=== PATIENT | female | born 1990 | race Caucasian/White ===

== ENCOUNTER 2021-07-18 16:34 | Outpatient (REF) | payer OTHER, SELFPAY ==
[2021-07-18 17:18] LABS: Influenza A PCR NEGATIVE (Negative); Influenza B PCR NEGATIVE (Negative); Resp Syncy Virus RNA Qual PCR NEGATIVE (Negative); SARS COV2 PCR INHOUSE NEGATIVE (Negative)
== END 2021-07-18 16:35 | disposition home or self-care (01) ==
LOC: HO.LNP 16:34
PROVIDERS: Visit Provider Internal Medicine
DX: Z20.822 Contact with and (suspected) exposure to COVID-19 (principal); R43.9 Unspecified disturbances of smell and taste
CPT/HCPCS: 0241U

== ENCOUNTER 2023-02-14 20:21 | Emergency (ER) | payer OTHER, SELFPAY ==
[2023-02-14 20:24] VITALS: BP 134/95; PULSE 72; RESP 20; TEMP 36.8; O2SAT 99; BMI 34.2
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
[2023-02-14 22:51] VITALS: BP 132/85; PULSE 62; RESP 18; TEMP 37.1; O2SAT 97
--- NOTE | 2023-02-14 23:03 | PC.NURSE ---
pa notified pt right hand swelling and scant blood coming from cat bite and pt c/o extreme pain. elevated w/various pillows, ice around forearm where other cat bites/scratches are. aox4. cooperative. 05/18 pain.
== END 2023-02-15 01:11 | disposition home or self-care (01) ==
PROVIDERS: Emergency Provider Emergency Medicine Emergency Medical Services
DX: S41.151A Open bite of right upper arm, initial encounter (principal); S40.811A Abrasion of right upper arm, initial encounter; M79.601 Pain in right arm; M79.641 Pain in right hand; W55.01XA Bitten by cat, initial encounter; Y93.9 Activity, unspecified; Y92.9 Unspecified place or not applicable; Y99.9 Unspecified external cause status; Z79.899 Other long term (current) drug therapy; Z23 Encounter for immunization
CPT/HCPCS: 73110; 73130; 90471; 90715; 99284

== ENCOUNTER 2023-09-10 08:13 | Outpatient (AMB) | payer OTHER, SELFPAY ==
--- NOTE | 2023-09-10 08:28 | MHC.OFFWIV ---
Intake Vital Signs 09/10/23 08:37 Height 5 ft Weight 197 lb BMI 38.5 BP 116/70 Blood Pressure Location Lt brachial Position Sitting Pulse 97 Pulse Source Pulse Oximeter Temp 97.8 F Temp Source Temporal Artery Scan Pulse Oximetry (%) 98 Oxygen Delivery Method Room Air Intake Visit Reasons: EP Cough, headache, congestion [phone] Intake Note: pt is here today for cough headache congestion started yesterday Patient Tobacco Use Status: Current everyday Tobacco user Allergies amoxicillin Allergy (Verified 09/10/23 08:30) Hives Do you need a note to return to daycare/school/sports/work: Yes HPI HPI Comments History of Present Illness Details 32 y/o female presents to walk in clinic with c/o URI symptoms that started yesterday. BF home sick with Influenza and covid. PFSH Social History Patient Tobacco Use Status: Current everyday Tobacco user Review of Systems Const All systems reviewed & are unremarkable except as noted in HPI and below Physical Exam Vital Signs: Last Vital Signs Temp 97.8 F 09/10/23 08:37 Pulse 97 09/10/23 08:37 BP 116/70 09/10/23 08:37 Pulse Ox 98 09/10/23 08:37 Oxygen Delivery Method Room Air 09/10/23 08:37 BMI result Body Mass Index 38.5 Const General: no acute distress; No comfortable HEENT Head: Yes normocephalic Ears: external ears normal and TM's normal bilaterally General nose exam: Abnormal mucous membranes and turbinates present boggy and erythematous and Nasal discharge present Face and sinus: Yes sinuses nontender Mouth: moist mucous membranes Throat: Yes postnasal drainage Resp Effort & Inspection: normal respiratory effort Auscultation: clear to auscultation bilaterally Cardio Rate: regular rate Rhythm: regular rhythm Assessment & Plan Assessment & Plan (1) Upper respiratory tract infection: Code(s): J06.9 - Acute upper respiratory infection, unspecified Qualifiers: URI type: acute nasopharyngitis (common cold) Qualified Code(s): J00 - Acute nasopharyngitis [common cold] Plan: - Will Tx with Tamiflu - Acetaminophen for pain and fever relief - Rest and hydrate - OTC cold remedies. Plan - Will Tx with Tamiflu - Acetaminophen for pain and fever relief - Rest and hydrate - OTC cold remedies. Orders: Orders SARS-CoV2/FLU/RSV Today J06.9 - Acute upper respiratory infection, unspecified Medications: New oseltamivir (Tamiflu) 75 mg PO BID 5 days 10 caps 0RF J06.9 - Acute upper respiratory infection, unspecified acetaminophen 1,000 mg (2 x 500 mg) PO Q6H PRN 30 caps 0RF fever J06.9 - Acute upper respiratory infection, unspecified Coding Level of Care Code Est Pt Level 3 (48146) Diagnoses Acute nasopharyngitis J00 URI type: acute nasopharyngitis (common cold) Time Spent (min) 15
[2023-09-10 08:37] VITALS: BP 116/70; PULSE 97; TEMP 36.6; O2SAT 98; BMI 38.5
== END 2023-09-10 09:12 | disposition home or self-care (01) ==
PROVIDERS: Visit Provider Nurse Practitioner Family
DX: J00 Acute nasopharyngitis [common cold] (principal)
CPT/HCPCS: 99213

== ENCOUNTER 2023-09-10 15:14 | Outpatient (REF) | payer OTHER, SELFPAY ==
[2023-09-10 16:27] LABS: Influenza A PCR POSITIVE (Negative); Influenza B PCR NEGATIVE (Negative); Resp Syncy Virus RNA Qual PCR NEGATIVE (Negative); SARS COV2 PCR INHOUSE NEGATIVE (Negative)
== END 2023-09-10 15:15 | disposition home or self-care (01) ==
LOC: HO.LNP 15:14
PROVIDERS: Visit Provider Nurse Practitioner Family
DX: Z11.52 Encounter for screening for COVID-19 (principal); J06.9 Acute upper respiratory infection, unspecified
CPT/HCPCS: 0241U

== ENCOUNTER 2024-05-22 11:00 | Outpatient (AMB) | payer OTHER, SELFPAY ==
--- NOTE | 2024-05-22 11:05 | AM.OFFWIN_ITS ---
Intake Vital Signs 05/22/24 11:06 Height 5 ft Weight 191 lb BMI 37.3 BP 122/80 Blood Pressure Location Rt brachial Position Sitting Pulse 83 Pulse Source Pulse Oximeter Temp 98.2 F Temp Source Oral Pulse Oximetry (%) 98 Oxygen Delivery Method Room Air Intake Visit Reasons: EP-rt ear pain & discharging fluid Intake Note: Patient here for fluid feeling in right ear, blocked, ear pain and now starting to get a headache. Patient Tobacco Use Status: Current everyday Tobacco user Allergies amoxicillin Allergy (Verified 05/22/24 11:07) Hives Do you need a note to return to daycare/school/sports/work: No HPI HPI Comments History of Present Illness Details Patient is a 33-year-old female complaining of right ear pain. She tells me she had an a minor cold last week and has a history of ear infections and eustachian tube dysfunction and typically will get an ear infection when she sick. She states she has right ear pain, feeling like there is fluid in right ear, feeling like it is blocked, reduction in hearingand now starting to get a headache for the last few days. Tells me she had tubes as a child. She denies fevers. [facility] Social History Patient Tobacco Use Status: Current everyday Tobacco user Review of Systems Const All systems reviewed & are unremarkable except as noted in HPI and below Physical Exam Vital Signs: Last Vital Signs Temp 98.2 F 05/22/24 11:06 Pulse 83 05/22/24 11:06 BP 122/80 05/22/24 11:06 Pulse Ox 98 05/22/24 11:06 Oxygen Delivery Method Room Air 05/22/24 11:06 BMI result Body Mass Index 37.3 Const General: cooperative, healthy appearing, comfortable and no acute distress Orientation/consciousness: patient oriented x3 HEENT Head: Yes normal to inspection, Yes No palpable skull fracture present and Yes normocephalic Ears: hearing grossly normal bilaterally, external ears normal, EAC's normal, mastoids normal (no TTP) bilaterally and TM abnormal (bilateral) wth effusion, erythematous and with loss of landmarks General nose exam: Normal external nose present Face and sinus: Yes normal facial exam Mouth: Normal oral and palatal mucosa present Teeth and gingiva: dentition normal Throat: Yes posterior oropharynx normal Eyes General: appearance normal, both eyes and all related structures Neck Neck: Yes normal visual inspection, Yes full ROM, Yes no lymphadenopathy, Yes no meningeal signs, Yes trachea midline and Yes supple Resp Effort & Inspection: normal respiratory effort and able to speak in complete sentences Skin General skin exam: no rashes or lesions noted Neuro General: patient oriented x3 and no meningeal signs Assessment & Plan Assessment & Plan (1) Otitis media: Code(s): H66.90 - Otitis media, unspecified, unspecified ear Qualifiers: Otitis media type: suppurative Chronicity: acute Laterality: bilateral Recurrence: non-recurrent Spontaneous tympanic membrane rupture: without spontaneous rupture Qualified Code(s): H66.003 - Acute suppurative otitis media without spontaneous rupture of ear drum, bilateral Plan: With patients allergies, had to RX Doxy, reviewed not going in the sun while taking this medication and taking the medication with food. Plan see above Medications: New doxycycline hyclate 100 mg PO BID 14 tabs 0RF Coding Level of Care Code New Pt Level 3 (35451) Diagnoses Non-recurrent acute suppurative otitis media of both ears without spontaneous rupture of tympanic membranes H66.003 Otitis media type: suppurative Chronicity: acute Laterality: bilateral Recurrence: non-recurrent Spontaneous tympanic membrane rupture: without spontaneous rupture
[2024-05-22 11:06] VITALS: BP 122/80; PULSE 83; TEMP 36.8; O2SAT 98; BMI 37.3
== END 2024-05-22 11:35 | disposition home or self-care (01) ==
PROVIDERS: Visit Provider Physician Assistant
DX: H66.003 Acute suppurative otitis media without spontaneous rupture of ear drum, bilateral (principal)

== ENCOUNTER → 2024-05-22 11:00 | Outpatient (BNVA) | payer OTHER, SELFPAY | PROVIDERS: Visit Provider Physician Assistant | DX: H66.003 Acute suppurative otitis media without spontaneous rupture of ear drum, bilateral (principal) | CPT/HCPCS: 99202 ==

== ENCOUNTER 2024-07-12 11:59 | Outpatient (AMB) | payer OTHER, SELFPAY ==
[2024-07-12 12:33] VITALS: BP 128/82; PULSE 88; O2SAT 99; BMI 37.8
--- NOTE | 2024-07-12 12:33 | AM.OFFWIN_ITS ---
Intake Vital Signs 3 07/12/24 12:33 Height 5 ft Weight 193 lb 8 oz BMI 37.8 BP 128/82 Blood Pressure Location Rt brachial Position Sitting Pulse 88 Pulse Source Pulse Oximeter Pulse Oximetry (%) 99 Oxygen Delivery Method Room Air Intake Visit Reasons: EP hand bite, and RT leg bite by her cat Patient Tobacco Use Status: Current everyday Tobacco user Allergies amoxicillin Allergy (Verified 07/12/24 12:35) Hives Medication List - Last Reconciled 07/12/24 by Asha Magana MD sertraline 50 mg PO DAILY Do you need a note to return to daycare/school/sports/work: Yes HPI EP hand bite, and RT leg bite by her cat 2 HPI0 Details Chief Complaint Bite and scratch wounds from a cat. History of Present Illness The patient is a 33-year-old female presenting with an animal bite and scratch wounds. The incident occurred while she was attempting to restrain a highly agitated 20-pound 15-year-old cat, which resulted in injuries to her right hand and right leg. The patient reports being bitten on the palmar aspect of her right hand and sustaining two scratches behind the right knee. These injuries have been described as very painful, particularly due to their location on sensitive areas. The patient disclosed a history of allergy to penicillin, which developed over time, despite initial tolerance. Her immunization history includes a recent tetanus vaccine administered on February 28. The patient confirmed that the cat involved is fully vaccinated. No previous similar incidents were reported, and the patient has had prior experience handling doxycycline. Plan - Administer local wound care, including thorough cleaning of all affected areas. - Prescribe doxycycline for prophylactic treatment, given the cat bite and allergy to penicillin. - Monitor for signs of infection and luke ssess as needed. - Reassure regarding vaccination status of the cat against rabies, given its full vaccination history. - Reinforce education regarding wound ca re and signs for which to seek further medical evaluation, given the complexity of animal-related injuries. [facility] Social History Patient Tobacco Use Status: Current everyday Tobacco user Review of Systems Const All systems reviewed & are unremarkable except as noted in HPI and below Physical Exam Vital Signs: Last Vital Signs Pulse 88 07/12/24 12:33 BP 128/82 07/12/24 12:33 Pulse Ox 99 07/12/24 12:33 Oxygen Delivery Method Room Air 07/12/24 12:33 BMI result Body Mass Index 37.8 Const General: no acute distress Orientation/consciousness: patient oriented x3 Eyes General: appearance normal, both eyes and all related structures Resp Effort & Inspection: normal respiratory effort and able to speak in complete sentences Neuro General: patient oriented x3 Extrem Hand/finger images: 2 1. To bite lydia right hand palmar aspect Upper/lower leg/hip images: 2 1. 2. To scratch lydia behind right knee Psych Mental Status: mental status grossly normal Assessment & Plan Assessment & Plan (1) Cat bite of right hand: Code(s): S61.451A - Open bite of right hand, initial encounter; W55.01XA - Bitten by cat, initial encounter Qualifiers: Encounter type: initial encounter Qualified Code(s): S61.451A - Open bite of right hand, initial encounter; W55.01XA - Bitten by cat, initial encounter (2) Cat scratch of right lower leg: Code(s): S80.811A - Abrasion, right lower leg, initial encounter; W55.03XA - Scratched by cat, initial encounter Qualifiers: Encounter type: initial encounter Qualified Code(s): S80.811A - Abrasion, right lower leg, initial encounter; W55.03XA - Scratched by cat, initial encounter Plan Chief Complaint Bite and scratch wounds from a cat. History of Present Illness The patient is a 33-year-old female presenting with an animal bite and scratch wounds. The incident occurred while she was attempting to restrain a highly agitated 20-pound 15-year-old cat, which resulted in injuries to her right hand and right leg. The patient reports being bitten on the palmar aspect of her right hand and sustaining two scratches behind the right knee. These injuries have been described as very painful, particularly due to their location on sensitive areas. The patient disclosed a history of allergy to penicillin, which developed over time, despite initial tolerance. Her immunization history includes a recent tetanus vaccine administered on February 28. The patient confirmed that the cat involved is fully vaccinated. No previous similar incidents were reported, and the patient has had prior experience handling doxycycline. Plan - Administer local wound care, including thorough cleaning of all affected areas. - Prescribe doxycycline for prophylactic treatment, given the cat bite and allergy to penicillin. - Monitor for signs of infection and reassess as needed. - Reassure regarding vaccination status of the cat against rabies, given its full vaccination history. - Reinforce education regarding wound care and signs for which to seek further medical evaluation, given the complexity of animal-related injuries. Injuries cleaned with saline Note given to be off work today and tomorrow Follow-up with primary care Medications: Changed 2 From doxycycline hyclate 100 mg PO BID 14 tabs 0RF To doxycycline hyclate 100 mg PO BID 20 tabs 0RF 10 days Coding Level of Care Code Est Pt Level 4 (27525) Diagnoses Cat bite of right hand, initial encounter S61.451A; W55.01XA Encounter type: initial encounter Cat scratch of right lower leg, initial encounter S80.811A; W55.03XA Encounter type: initial encounter
--- OUTSIDE RECORDS SUMMARY | 2024-07-18 18:20 | XMS_ITS | Data Portability ---
Author Organization Y[facility] Zuniga [facility], [address] Address [address] [place] [address] Care Team Providers Care Manufacturing Development Engineer Name Role Phone LUCIACRISTINAMADDIE Primary Care Provider [phone] Assessment No assessment recorded. Plan of Treatment Reminders Order Date Submit Date Provider Last Modified By Organization Details Last Modified Time Details Appointments None recorded. Lab rapid SARS CoV 2 Ag, QL IA, respiratory specimen 2022 023 [place] [id number], [address] [place] [address], [phone], 3 10:13:07 rapid strep group A, throat 2022 023 [place] [address], [address] [place] [address], [phone], 3 10:13:07 rapid flu (A+B) 2022 023 [place] [address] [facility], [address] [place] [address], [phone], 3 10:13:07 SARS CoV 2 RNA (COVID-19), QL, cytotechnologist/cytology supervisor-PCR, respiratory specimen 2022 023 [facility] ([facility], [address] [place] [address], [address], 3 20:06:45 Referral None recorded. Procedures None recorded. Surgeries None recorded. Imaging None recorded. Medication Orders ondansetron 4 mg disintegrat ing tablet 2022 023 J[id number], [address] [place], [place], [phone], 13:55:10 Patient TargetsNo targets recorded. Patient Instructions Encounter Date Encounter Id Patient Instructions Last Modified By Organization Details Last Modified Time 12/23/2022 [id number] sore throat: car e instructions Not available 12/23/2022 10:13:07 viral infections : care instructions Not available 12/23/2022 10:13:07 Reason for Referral None Reported. Results Created Date Observation Date Name Description Value Unit Range Abnormal Flag Note LastModifiedBy Organization Detail LastModifiedTime 12/24/1912/24/2022 SARS- COV-2 , FIDELINA sars-cov-2, FIDELINA NOT DETECT ED not detect ed This nucle ic acid ampli ficat ion test was devel oped and its perfo rmanc e zuleima cteri stics deter mined by [facility]. Nucle ic acid ampli ficat ion tests inclu de RT-PC R and TMA. This test has not been FDA clear ed or appro salima. This test has been autho rized by FDA under an Emerg ency Use Autho rizat ion (EUA) . This test is only autho rized for the durat ion of time the decla ratio n that circu mstan savana exist justi fying the autho rizat ion of the emerg ency use of in vitro diagn ostic tests for detec tion of SARS- CoV-2 virus and/o r diagn osis of COVID -19 infec tion under secti on 564(b )(1) of the Act, 21 U.S.C . 360bb b-3(b ) (1), unles s the autho rizat ion is termi nated or revok ed soone r. When diagn ostic testi ng is negat joslyn, the possi bilit y of a false negat joslyn resul t shoul d be consi dered in the marisela xt of a patie nt's recen t expos ures and the prese nce of clini edis signs and sympt oms consi stent with COVID -19. An indiv idual witho ut sympt oms of COVID -19 and who is not ingrid ing SARS- CoV-2 virus would expec t to have a negat joslyn (not detec trisha) resul t in this assay . Not Available [facility] ([facility]) [address], [place], [address], 12/24/2022 20:06:45 12/24/1912/23/2022 rapid strep group A, throa t Unknown Analyte Normal = Negati ve Not Available [address] [place] [address], [place], [phone], 12/23/2022 09:20:02 12/24/19 23 12/23/2022 rapid strep group A, throa t Unknown Analyte negati ve Not Available [address] [place] [address], [phone], 12/23/2022 09:20:02 12/24/19 23 12/23/2022 rapid flu (A+B) Unknown Analyte negati ve Not Available [address] [place] [address], [place], [address], 12/23/2022 09:57:57 12/24/19 23 12/23/2022 rapid flu (A+B) Unknown Analyte Normal = Negati ve Not Available [address] [place] [address], [phone], 12/23/2022 09:57:57 12/24/19 23 12/23/2022 rapid flu (A+B) Unknown Analyte Normal = Negati ve Not Available [address] [place] [address], [phone], 12/23/2022 09:57:57 12/24/19 23 12/23/2022 rapid flu (A+B) Unknown Analyte negati ve Not Available nadine [address], [address], 12/23/2022 09:57:57 12/24/1912/23/2022 rapid SARS CoV 2 Ag, QL IA, respi rator y speci men Unknown Analyte Normal =Negat joslyn Not Available nadine [address], [address], 12/23/2022 09:19:56 12/24/1912/23/2022 rapid SARS CoV 2 Ag, QL IA, respi rator y speci men Unknown Analyte negati ve Not Available nadine [address], [address], 12/23/2022 09:19:56 Result Notes None recorded. Problems Name Problem SNOMED Code Status Onset Date Resolution Date Notes Provider Name and Address Organization Details Recorded Time Migraine [id number] Active 023 Chanelle johnson, [place] - [facility] 12/23/2022 09:21:47 Problem Notes None recorded. Medical Equipment None Reported. Allergies Allergen ID Allergen Name Allergen Category Reaction Reaction Severity Criticality Documentation Date Start Date Code Code System Note Provider Name and Address Organization Details Recorded Time 774179 amoxicill in medicatio n hives Not available Not available 12/23/2022 723 RxNorm Chanelle johnson, PA - [facility] 09:20:41 Medications Name Sig Start Date Stop Date Status Note LastModified by Organization Details LastModified Time sertraline active Not Available Not Av ailable Not Available multivitamin 2022 completed Not Available Not Available Not Available (21) active Not Available Not Available Not Available Vitals Date Recorded Body height Body mass index (BMI) Body weight Respiratory rate Oxygen saturation Oxygen saturation in Arterial blood by Pulse oximetry Heart rate Body temperature Systolic blood pressure Diastolic blood pressure Provider Name and Address Organization Details Last Updated DateTime 152.4 cm 33.2 kg/m2 96372.7 g 18 /min 97 % 97 % 69 /min 98.4 [degF] 128 mm[Hg] 88 mm[Hg] Chanelle Smith [facility] 3 09:23:49 Date Recorded Body height Body mass index (BMI) Body weight Oxygen saturation Oxygen saturation in Arterial blood by Pulse oximetry Heart rate Respiratory rate Body temperature Systolic blood pressure Diastolic blood pressure Provider Name and Address Organization Details Last Updated DateTime 3 152.4 cm 33.2 kg/m2 85217.7 g 97 % 97 % 73 /min 18 /min 99.4 [degF] 112 mm[Hg] 78 mm[Hg] CARRI Smith [facility] 3 13:30:37 Social History Question Answer Notes LastModified by Organizat ion Details LastModified Time Tobacco Smoking Status Never Smoker [facility] 12/23/2022 09:22:18 What Is Your Level Of Alcohol Consumption? Occasional Information not available 12/23/2022 How Many Times Per Week Do You Consume Alcohol? Less Than 1 Time Per Week Information not available 12/23/2022 Which Illicit Or Recreational Drugs Have You Used? Marijuana Information not available 12/23/2022 Do You Use Any Illicit Or Recreational Drugs? Yes Information not available 12/23/2022 Have You Recently Traveled Abroad? No Information not available 12/23/2022 Do You Or Have You Ever Used Any Other Forms Of Tobacco Or Nicotine? No Information not available 12/23/2022 Sex: Unknown Functional Status None recorded. Mental Status None recorded. Family History Relationship Description Onset Age of this Age Resolved Age Notes LastModified by Organization Details LastModified Time Mother Chronic obstructive pulmonary disease [email or web address] Not available 2022 09:22:01 Medical History No medical history recorded. Gynecological History Statement/Question Response Date of LMP 01/27/2023 Is there any chance of ? No Obstetrics History GPAL:G 0 P 0 0 0 0 Immunizations Vaccine Type Date Status Provider Name and Address Organization Details Recorded Time Influenza, MDCK, quadrivalent, PF 08/21/2022 completed Chanelle Monfette null, PA - [facility] 12/23/2022 09:20:29 Influenza, MDCK, quadrivalent, PF 09/11/2020 completed Chanelle Castañedatte null, PA - [facility] 12/23/2022 09:20:29 COVID-19, mRNA, LNP-S, PF, 30 mcg/0.3 mL dose 01/08/2021 completed Chanelle Zendejase null, PA - [facility] 12/23/2022 09:20:29 COVID-19, mRNA, LNP-S, PF, 30 mcg/0.3 mL dose 01/29/2021 completed Chanelle Nogueirafette null, PA - [facility] 12/23/2022 09:20:29 COVID-19, mRNA, LNP-S, PF, 30 mcg/0.3 mL dose, krys-sucrose 10/28/2021 completed Chanelle Zendejase null, PA - [facility] 12/23/2022 09:20:29 Tdap 08/16/2012 completed Chanelle Zendejase null, PA - [facility] 12/23/2022 09:20:29 Influenza, split virus, trivalent, preservative 04/28/2013 completed Chanelle Zendejase null, PA - [facility] 12/23/2022 09:20:29 Influenza, split virus, trivalent, preservative 05/28/2014 completed Chanelle Zendejase null, PA - [facility] 12/23/2022 09:20:29 Influenza, split virus, trivalent, PF 09/02/2016 completed Chanelle Castañedatte null, PA - [facility] 12/23/2022 09:20:29 Influenza, split virus, trivalent, PF 09/11/2015 completed Chanelle Zendejase null, PA - [facility] 12/23/2022 09:20:29 Td (adult), 2 Lf tetanus toxoid, preservative free, adsorbed 08/21/2022 completed Chanelle Zendejase null, PA - [facility] 12/23/2022 09:20:29 Tdap 02/15/2023 completed YUKI Jarvis - [facility] 02/17/2023 13:28:16 Past Encounters Encounter ID Performer Location Encounter Start Date Encounter Closed Date Diagnosis/Indication Diagnosis SNOMED-CT Code Diagnosis ICD10 Code [id number] [address] [address] [facility] [place] [address] 02/12/2021 15:50:54 02/12/2021 17:18:25 [id number] [address] [facility] [facility] [place] [address] 05/22/2020 08:28:19 05/22/2020 10:37:07 [id number] [address] [facility] [place] [address] 08/16/2018 15:35:40 08/16/2018 16:21:05 [id number] [address] [facility] [facility] [place] [address] 08/21/2019 11:39:27 08/21/2019 12:12:03 [id number] [address] [facility] [place] [address] 10/15/2018 09:08:31 10/15/2018 09:45:27 [id number] [address] [facility] [place] [address] 09/13/2021 08:45:23 09/13/2021 10:01:05 [id number] [address] [facility] [facility] [place] [address] 10/11/2018 11:38:29 10/11/2018 12:22:45 [id number] [address] [facility] [place] [address] 08/31/2021 08:07:22 08/31/2021 08:47:47 [id number] Mesha Gonzalez MD [address] [address] [facility] [place] [address] 12/23/2022 08:45:23 12/23/2022 10:17:36 Viral syndrome [id number] B34.9 [id number] Mesha Gonzalez [place] [address] [address] 02/17/2023 12:54:04 02/17/2023 14:08:54 Cat bite 463601018 W55.01XS Cellulitis 921835480 L03 .90 Health Concerns Section Related Observation LastModified by Organization Detai ls LastModified Time None Recorded Concern Status LastModified by Organization Details LastModified Time None Recorded Advance Directives Directive None Recorded Payers Encounter Date Sequence Insurance Name Policy Number Policy Dudley Covered Member ID Dudley Member ID Guarantor Name 02/12/2021 1 [facility] [id number] Willatalya Barbosa [id number] 1 Willatalya Barbosa 08/31/2021 1 [employer] [id number] Willatalya Barbosa [id number] 1 Willatalya Barbosa 09/13/2021 1 [employer] [id number] Willa Barbosa [id number] 1 Willa Barbosa 12/23/2022 1 [employer] [id number] Willa Barbosa [id number] 1 Willatalya Barbosa 02/17/2023 1 [employer] [id number] Willatalya Barbosa [id number] Willa Barbosa Notes Date Note Type Note Provider Name and Address Organization Details Recorded Time 12/23/2022 text/html Sore throatRepor trisha bypatient.Location:[place] oat Associated Symptoms:sore throat;nasal congestion;coughing; nausea Mesha Gonzalez MD [address] [place], [address], [facility] 12/23/2022 13:31:39 02/17/2023 text/html Animal BiteRepor trisha bypatient.Onset of exposure:4 days ago Type of Exposure:cat bite Wound Type:Puncture Location:right; arms Associated Symptoms:wound drainage;redness;swe lling Vaccine Status:Tetanus vaccine within past 5 yearsNotes:Went to ER, Started on Metronidazole and Doxycycline, Concerned because hand feel swollen and painful Mesha Gonzalez MD [address] [place], [address], [facility] 02/17/2023 14:17:46 OBGyn Episode No OBEpisode recorded.
== END 2024-07-12 13:25 | disposition home or self-care (01) ==
PROVIDERS: Visit Provider Internal Medicine
DX: S61.451A Open bite of right hand, initial encounter (principal); W55.01XA Bitten by cat, initial encounter; S80.811A Abrasion, right lower leg, initial encounter; W55.03XA Scratched by cat, initial encounter

== ENCOUNTER → 2024-07-12 11:59 | Outpatient (BNVA) | payer OTHER, SELFPAY | PROVIDERS: Visit Provider Internal Medicine | DX: S61.451A Open bite of right hand, initial encounter (principal); W55.01XA Bitten by cat, initial encounter; S80.811A Abrasion, right lower leg, initial encounter; W55.03XA Scratched by cat, initial encounter | CPT/HCPCS: 99212 ==